=== PATIENT | female | born 1955 | race Hispanic/Latino ===

== ENCOUNTER → 2019-07-10 | Outpatient (CLI) | payer OTHER ==
[~2019-07-10] MED LIST: ACET-2743 PO; Aspirin PO; CASCARA SAGRADA PO; DULO60CA44 PO; FISH1CAP49 PO; GABA-529 PO; LEFL20TA18 PO; LISI2.5T2 PO; OMEP40CA13 PO; OXYC5 PO; PRAV10TA39 PO; SULF500T8 PO; TRAM50TA4 PO
== END | disposition home or self-care (01) ==
LOC: RAH 14:09
PROVIDERS: ATTEND Family Medicine
DX: Z12.31 Encounter for screening mammogram for malignant neoplasm of breast (principal)
CPT/HCPCS: 77067

== ENCOUNTER → 2023-10-25 | Outpatient (CLI) | payer OTHER ==
[~2023-10-25] MED LIST changes: -DULO60CA44 PO; +DULO60CA45 PO; -LEFL20TA18 PO; +LEFL20TA22 PO; +LISI2.5T13 PO; -LISI2.5T2 PO; -OMEP40CA13 PO; +OMEP40CA21 PO
== END | disposition home or self-care (01) ==
LOC: RAH 14:28
PROVIDERS: ATTEND Family Medicine
DX: Z12.31 Encounter for screening mammogram for malignant neoplasm of breast (principal)
CPT/HCPCS: 77067

== ENCOUNTER 2024-01-15 12:36 | Emergency (ER) | payer OTHER ==
[~2024-01-15] VITALS: Ht 157.5 cm; Wt 82.1 kg
[2024-01-15] MEDS: IBUPROFEN 600 MG TABLET PO ONE (13:23)
[2024-01-15] MEDS ORDERED: ACET-2079 PO (15:04)
[2024-01-15 15:33] VITALS: BP 155/77; PULSE 65; RESP 18; O2SAT 100
== END 2024-01-15 15:34 | disposition home or self-care (01) ==
LOC: EDH 12:36
DX: S52.502A Unspecified fracture of the lower end of left radius, initial encounter for closed fracture (principal); E78.00 Pure hypercholesterolemia, unspecified; I10 Essential (primary) hypertension; Z79.899 Other long term (current) drug therapy; Z90.49 Acquired absence of other specified parts of digestive tract; Z90.710 Acquired absence of both cervix and uterus; W01.0XXA Fall on same level from slipping, tripping and stumbling without subsequent striking against object, initial encounter; Y93.89 Activity, other specified; Y92.89 Other specified places as the place of occurrence of the external cause; Y99.8 Other external cause status
CPT/HCPCS: 29125; 73090; 73100

== ENCOUNTER 2024-12-28 23:43 | Emergency (ER) | payer OTHER, MEDICARE ==
[~2024-12-28] VITALS: Ht 152.4 cm; Wt 83.0 kg
[~2024-12-28 23:43] MED LIST changes: +ACET-2079 PO
--- NOTE | 2024-12-29 00:11 | ERN ---
ED Note History of Present Illness Stated Complaint: RT SHOULDER PAIN Chief Complaint: Shoulder Injury/Pain Time Seen by MD: 23:50 Dictation: PATIENT IS A 69-YEAR-OLD FEMALE HERE WITH COMPLAINTS OF CHRONIC RIGHT SHOULDER PAIN THAT RADIATES UP TO HER NECK ONSET ONE YEAR PRIOR TO ARRIVAL. SHE STATES SHE HAS A HISTORY OF RHEUMATOID ARTHRITIS AND HAS BEEN WORKED UP BY HER CRITICAL CARE EDUCATOR HOWEVER STATES IT NOTHING HAS GIVEN HERSELF. CURRENTLY SHE IS ONLY TAKING TYLENOL [id number] FOR PAIN. Allergies: Coded Allergies: No Known Allergies (Verified Allergy, 04/12/12) Home Meds Active Scripts Acetaminophen with Codeine (Acetaminophen-Cod #3 Tablet) 300 Mg-30 Mg Tablet, 1 TAB PO Q4H PRN for PAIN LEVEL 6 TO 10 for 3 Days, #18 TAB Prov:GEORGE TINOCO V CHIEF CUSTOMER OFFICER 01/15/24 Acetaminophen (Tylenol Extra Strength) 500 Mg Tablet, 1000 MG PO Q8H, #30 TAB Prov:JEFF OLIVER MD 01/23/16 Oxycodone HCl (Roxicodone) 5 Mg Tab, 5 MG PO Q4H PRN for PAIN, #40 TAB Prov:JEFF OLIVER MD 01/23/16 [Aspirin] 325 MG TABLET No Conflict Check, 325 MG PO DAILY, #20 0 Refills Prov:JEFF OLIVER MD 01/23/16 Reported Medications Leflunomide (Leflunomide) 20 Mg Tablet, 20 MG PO AM, TAB 01/20/16 Duloxetine HCl (Cymbalta) 60 Mg Capsule.dr, 60 MG PO AM, CAP 01/20/16 Lisinopril (Lisinopril) 2.5 Mg Tablet, 2.5 MG PO AM, TAB 01/20/16 Tramadol Hcl (Tramadol HCl) 50 Mg Tablet, 50 MG PO Q6 HOURS PRN for PAIN, TAB 01/20/16 Sulfasalazine (Sulfasalazine) 500 Mg Tablet, 500 MG PO TID, TAB 01/19/16 Pravastatin Sodium (Pravastatin Sodium) 10 Mg Tablet, 10 MG PO HS, TAB 01/19/16 Omeprazole (Omeprazole) 40 Mg Capsule.dr, 40 MG PO DAILY, CAP 01/19/16 Gabapentin (Gabapentin) 100 Mg Capsule, 100 MG PO TID, CAP 01/19/16 [place]-3 Fatty Acids/Fish Oil (Fish Oil 1,000 mg Capsule) 1 Each Capsule, 1 EACH PO BID, CAP 01/19/16 [Cascara [place]] No Conflict Check, 1 CAP PO HS 01/19/16 Past Medical History Past Medical History: Arthritis, Diabetes-Type II, High Cholesterol, Hypertension, Other (RHEUMATOID ARTHRITIS) Surgical History: Hysterectomy, Cholecystectomy Surgical History Other: HIP SURGERY-RIGHT History: Not Applicable RN Note Reviewed/Agreed w/PFSH: Yes Review of System Dictation CONSTITUTIONAL: NEGATIVE EXCEPT FOR HPI HEAD/FACE: NEGATIVE EXCEPT FOR HPI EENT: NEGATIVE EXCEPT FOR HPI RESPIRATORY: NEGATIVE EXCEPT FOR HPI GASTROINTESTINAL/ABDOMINAL: NEGATIVE EXCEPT FOR HPI GENITOURINARY: NEGATIVE EXCEPT FOR HPI MUSCULOSKELETAL: NEGATIVE EXCEPT FOR HPI RIGHT SHOULDER PAIN INTEGUMENTARY: NEGATIVE EXCEPT FOR HPI NEUROLOGICAL/PSYCH: NEGATIVE EXCEPT FOR HPI HEMATOLOGIC/LYMPHATIC: NEGATIVE EXCEPT FOR HPI ALL SYSTEMS NEGATIVE, EXCEPT NOTED ABOVE. 13 POINT REVIEW OF SYSTEMS ASSESSED AND ALL NEGATIVE EXCEPT FOR ABOVE. Initial Vital Sign VS Vital Signs Date Time Temp Pulse Resp B/P (MAP) Pulse Ox O2 Delivery O2 Flow Rate FiO2 12/28/24 23:45 98.2 89 16 140/88 97 Room Air 12/28/24 23:47 0 21 Physical Exam Dictation VITAL SIGNS REVIEWED GENERAL APPEARANCE: ALERT, ORIENTED X 3, SEVERE ACUTE DISTRESS, WELL DEVELOPED, NOURISHED. HEAD AND FACE: NON-TRAUMATIC. EYES: PERRL, PINK CONJUNCTIVAS, EYELID NO TRAUMA, ANTERIOR CHAMBER WITH ARCUS SENILIS. EARS: PINNAS INTACT AND NO SIGNS OF TRAUMA OR ERYTHEMA EAR CANALS CLEAR AND NO DISCHARGE TM NO ERYTHEMA NOSE: NO DISCHARGE, NO BLEEDING. OROPHARYNX: MOUTH NORMAL, TONGUE PINK, PHARYNX CLEAR,NO ERYTHEMA, TONSILS NO EXUDATES, NO ABSCESSES NOTED, MUCOUS ME MBRANE MOIST NECK: SUPPLE, NON-TENDER, NO THYROMEGALY, NO MASSES, NO JVD, NO BRUITS BREAST:DEFERRED CHEST:NO TENDERNESS, NO CREPITUS, NO PARADOXICAL MOVEMENT, NO RETRACTIONS LUNGS:CLEAR, WELL-VENTILATED, SYMMETRIC, NO RALES, NO WHEEZING, NO RHONCHI, NO STRIDOR, GOOD BREATH SOUNDS BILATERALLY HEART: REGULAR RATE, REGULAR RHYTHM, NO MURMUR, NO GALLOPS VASCULAR: NO PERIPHERAL EDEMA, ABDOMEN: SOFT, POSITIVE BOWEL SOUNDS, NONDISTENDED, NO GUARDING, NONTENDER, NO REBOUND, NO MASSES NO HEPATOMEGALY, NO SPLENOMEGALY, NO GUTIERREZ'S SIGN, NO HERNIAS. RECTAL: DEFERRED GENITAL: DEFERRED NEUROLOGICAL: NORMAL SPEECH, MOTOR FUNCTION INTACT, SENSORY FUNCTION INTACT MUSCULOSKELETAL: NECK NONTENDER, FULL RANGE OF MOTION, BACK NONTENDER, FULL RANGE OF MOTION, EXTREMITIES: RIGHT DIFFUSE SHOULDER TENDER TO PALPATION WITH DECREASED RANGE OF MOTION SECONDARY TO PAIN. DISTAL NEUROVASCULAR CMS INTACT. SKIN: COLOR PINK, DRY, NO TURGOR, NO RASH, NO LACERATIONS, NO ABRASIONS, NO CONTUSIONS. LYMPHATIC: DEFERRED Results (Laboratory/Radiology) Laboratory/Radiology 0040/SHOULDER X-RAY DEMONSTRATES DEGENERATIVE CHANGES ONLY NO FRACTURES OR DISLOCATED Labs Reviewed?: Yes ED Course ED Course Orders Procedure Category Date Status Time Shoulder Comp 2+Vws Rt RAD 12/29/24 Taken 00:08 Dexamethasone 4mg/Ml PHA 12/29/24 Complete 1ml Vial (Dexametha 00:30 Ketorolac 60mg/2ml PHA 12/29/24 Complete (Toradol 60mg/2ml) 00:30 Acetaminophen With PHA 12/29/24 Complete Codeine (Tylenol-Code 00:30 Current Medications Medications (Trade) Dose Ordered Sig/Kavya Route PRN Reason Start Time Stop Time Status Last Admin Dose Admin Acetaminophen/ Codeine Phosphate (TYLenol-coDEINE TAB) 2 tab ONCE ONCE PO 12/29/24 00:30 12/29/24 00:31 DC 12/29/24 00:16 Dexamethasone Sodium Phosphate (dexaMETHasone 4MG/ML 1ML VIAL) 8 mg ONCE ONCE IM 12/29/24 00:30 12/29/24 00:31 DC 12/29/24 00:16 Ketorolac Tromethamine (toRADol 60MG/ 2ML) 60 mg ONCE ONCE IM 12/29/24 00:30 12/29/24 00:31 DC 12/29/24 00:16 Vital Signs Date Time Temp Pulse Resp B/P (MAP) Pulse Ox O2 Delivery O2 Flow Rate FiO2 12/28/24 23:47 98.4 74 20 141/68 98 Room Air* 0 21 12/28/24 23:45 98.2 89 16 140/88 97 Room Air 0040/PATIENT DISCHARGED HOME WITH ACUTE EXACERBATION OF RHEUMATOID ARTHRITIS GIVEN PREDNISONE/IBUPROFEN TOLD TO SEE HER DOCTOR MONDAY WITHOUT FAIL FOR FOLLOW UP AND MANAGEMENT OF HER ARTHRITIS Medical Decision Making MDM MEDICAL DISCHARGE MAKING BASED ON X-RAY OF RIGHT SHOULDER AND PAIN MANAGEMENT X-RAY DEMONSTRATES DEGENERATIVE CHANGES ONLY DISCHARGED HOME ON TITRATING DOSE OF PREDNISONE AND IBUPROFEN TOLD SEE HER PRIMARY CARE DOCTOR MONDAY WITHOUT FAIL FOR FOLLOW UP AND MANAGEMENT DX & DISP Disposition: Discharge Departure Impression: Primary Impression: Acute rheumatoid arthritis Additional Impression: Right shoulder pain Condition: Stable Scripts Omeprazole (Omeprazole) 40 Mg Capsule.dr 1 CAP PO DAILY for 30 Days, #30 CAP 0 Refills Prov: NADIR JOE NP 12/29/24 Ibuprofen (Ibuprofen 800 mg Tab) 800 Mg Tab 800 MG PO Q8H PRN for fever or pain, #30 TAB 0 Refills Prov: NADIR JOE NP 12/29/24 Prednisone (Prednisone) 20 Mg Tablet 1 TAB PO AD for 6 Days, #14 TAB 0 Refills TAKE 1 TAB BY MOUTH THREE TIMES PER DAY X3 DAYS, THEN TAKE 1 TAB BY MOUTH TWICE A DAY X2 DAYS, THEN TAKE 1 TAB BY MOUTH ONCE A DAY X1 DAY. TAKE WITH FOOD Prov: NADIR JOE NP 12/29/24 Additional Instructions: FOLLOW-UP WITH PRIMARY CARE PROVIDER IN 1 TO 2 DAYS. TAKE MEDICATIONS DIRECTED HERE IN THE EMERGENCY ROOM. OKAY TO CONTINUE HOME MEDICATIONS UNLESS OTHERWISE DISCUSSED DURING YOUR VISIT IN THE EMERGENCY ROOM TODAY. RETURN TO YOUR NEAREST EMERGENCY ROOM IF SYMPTOMS WORSEN OR IF THERE IS NO IMPROVEMENT. CALL 911 IF YOU NEED IMMEDIATE ASSISTANCE. TAKE TYLENOL OR MOTRIN OVER-THE- COUNTER NEEDED AND IF NO CONTRAINDICATIONS ARE PRESENT. INCREASE ORAL HYDRATION. A WOUND CULTURE OR URINE CULTURE WAS ORDERED HERE IN THE EMERGENCY ROOM DEPARTMENT PLEASE FOLLOW-UP WITH PRIMARY CARE PROVIDER AND ADVISE THEM TO GET REPEAT PORTS FROM OUR FACILITY. IF YOU HAD ANY MICHELL WRAP/SPLINTS THAT WERE APPLIED HERE, PLEASE DO NOT REMOVE THEM UNTIL YOU SEE YOUR PRIMARY CARE OR SPECIALTY. TAKE PREDNISONE DIRECTED WITH FOOD UNTIL GONE. TAKE IBUPROFEN EVERY 8 HOURS WITH FOOD FOR THE NEXT TWO DAYS. TAKE OMEPRAZOLE DAILY FOR THE NEXT MONTH. WARM COMPRESSES TO RIGHT SHOULDER THREE TO 4 TIMES A DAY AND SEE YOUR PRIMARY CARE DOCTOR ON MONDAY WITHOUT FAIL FOR FOLLOW UP AND MANAGEMENT OF YOUR CHRONIC PAIN Referrals: HAFSA JEFF MD (PCP) Time of Disposition: 00:41 I have reviewed the case, and I agree with, Diagnosis and Plan NADIR JOE NP Dec 29, 2024 00:11
[2024-12-29] MEDS: dexaMETHasone SOD PHOSPHATE 4 MG/ML 1ML VIAL IM ONE (00:16)
[2024-12-29] MEDS: acetaMINOPHEN WITH coDEINE 1 TAB TAB PO ONE (00:16)
[2024-12-29] MEDS: ketOROlac 60 MG VIAL (30MG/ML) IM ONE (00:16)
[2024-12-29 00:41] VITALS: BP 137/63; PULSE 71; RESP 18; TEMP 98.1; O2SAT 98
[2024-12-29] MEDS ORDERED: PRED20TA3 PO (00:43)
[2024-12-29] MEDS ORDERED: IBUP-2077 PO (00:43)
[2024-12-29] MEDS ORDERED: OMEP40CA21 PO (00:43)
--- NOTE | 2024-12-29 08:26 | HMCIMG ---
RIGHT SHOULDER RADIOGRAPHS - 2-3 VIEWS INDICATION: Pain COMPARISON: None FINDINGS: No fracture or dislocation identified. Acromioclavicular and glenohumeral alignments are well maintained. Visible portions of the right clavicle are intact. Mild acromioclavicular joint osteoarthropathy. IMPRESSION: No evidence for fracture or dislocation.
== END 2024-12-29 00:47 | disposition home or self-care (01) ==
LOC: EDH 23:43
DX: M06.9 Rheumatoid arthritis, unspecified (principal); M25.511 Pain in right shoulder; E11.9 Type 2 diabetes mellitus without complications; E78.00 Pure hypercholesterolemia, unspecified; I10 Essential (primary) hypertension; Z79.899 Other long term (current) drug therapy; Z90.49 Acquired absence of other specified parts of digestive tract; Z90.710 Acquired absence of both cervix and uterus
CPT/HCPCS: 99284; 73030; 96372 ×2; J1100; J1885

== ENCOUNTER 2025-03-22 15:02 | Emergency (ER) | payer OTHER, MEDICARE ==
[~2025-03-22] VITALS: Ht 157.5 cm; Wt 80.9 kg
[~2025-03-22 15:02] MED LIST changes: +IBUP-2077 PO; +PRAV10TA37 PO; -PRAV10TA39 PO; +PRED20TA3 PO
[2025-03-22] MEDS: ORPHENADRINE 60MG/2ML IM ONE (15:34)
[2025-03-22] MEDS ORDERED: DICL20GE TP (16:08)
--- NOTE | 2025-03-22 16:09 | ERN ---
General Chief Complaint: Knee Injury/Swelling Stated Complaint: KNEE PAIN Time Seen by MD: 15:10 Source: patient History of Present Illness Initial Comments Patient is a 69-year-old female coming in complaining of left knee pain. Per patient she has had this pain for three weeks. She is followed up with the PCP in was diagnosed with osteoarthritis of the left knee. Patient does use a walker to ambulate. Allergies: Coded Allergies: No Known Allergies (Verified Allergy, 04/12/12) Home Meds Active Scripts Omeprazole (Omeprazole) 40 Mg Capsule.dr, 1 CAP PO DAILY for 30 Days, #30 CAP 0 Refills Prov:NADIR JOE NP 12/29/24 Ibuprofen (Ibuprofen 800 mg Tab) 800 Mg Tab, 800 MG PO Q8H PRN for fever or pain, #30 TAB 0 Refills Prov:NADIR JOE NP 12/29/24 Prednisone (Prednisone) 20 Mg Tablet, 1 TAB PO AD for 6 Days, #14 TAB 0 Refills TAKE 1 TAB BY MOUTH THREE TIMES PER DAY X3 DAYS, THEN TAKE 1 TAB BY MOUTH TWICE A DAY X2 DAYS, THEN TAKE 1 TAB BY MOUTH ONCE A DAY X1 DAY. TAKE WITH FOOD Prov:NADIR JOE NP 12/29/24 Acetaminophen with Codeine (Acetaminophen-Cod #3 Tablet) 300 Mg-30 Mg Tablet, 1 TAB PO Q4H PRN for PAIN LEVEL 6 TO 10 for 3 Days, #18 TAB Prov:GEORGE TINOCOP 01/15/24 Acetaminophen (Tylenol Extra Strength) 500 Mg Tablet, 1000 MG PO Q8H, #30 TAB Prov:JEFF OLIVER MD 01/23/16 Oxycodone HCl (Roxicodone) 5 Mg Tab, 5 MG PO Q4H PRN for PAIN, #40 TAB Prov:JEFF OLIVER MD 01/23/16 [Aspirin] 325 MG TABLET No Conflict Check, 325 MG PO DAILY, #20 0 Refills Prov:JEFF OLIVER MD 01/23/16 Reported Medications Leflunomide (Leflunomide) 20 Mg Tablet, 20 MG PO AM, TAB 01/20/16 Duloxetine HCl (Cymbalta) 60 Mg Capsule.dr, 60 MG PO AM, CAP 01/20/16 Lisinopril (Lisinopril) 2.5 Mg Tablet, 2.5 MG PO AM, TAB 01/20/16 Tramadol Hcl (Tramadol HCl) 50 Mg Tablet, 50 MG PO Q6 HOURS PRN for PAIN, TAB 01/20/16 Sulfasalazine (Sulfasalazine) 500 Mg Tablet, 500 MG PO TID, TAB 01/19/16 Pravastatin Sodium (Pravastatin Sodium) 10 Mg Tablet, 10 MG PO HS, TAB 01/19/16 Omeprazole (Omeprazole) 40 Mg Capsule.dr, 40 MG PO DAILY, CAP 01/19/16 Gabapentin (Gabapentin) 100 Mg Capsule, 100 MG PO TID, CAP 01/19/16 [place]-3 Fatty Acids/Fish Oil (Fish Oil 1,000 mg Capsule) 1 Each Capsule, 1 EACH PO BID, CAP 01/19/16 [Cascara [place]] No Conflict Check, 1 CAP PO HS 01/19/16 Past Medical History Past Medical History: Anxiety, Arthritis, Depression, Diabetes-Type II, High Cholesterol, Hypertension Past Surgical History: Hysterectomy, Cholecystectomy, Other Surgical History Other: right hip replacement Female( History) History: Not Applicable ROS Dictation CONSTITUTIONAL: No chills, no fever, no weakness, no diaphoresis, no malaise. HEAD/FACE: No signs of trauma. EENT: No eye pain, no blurred vision, no tearing, no double vision, no ear pain, no ear discharge, no nose pain, no nasal congestion, no throat pain, no throat swelling, no mouth pain. RESPIRATORY: No cough, no orthopnea, no SOB, no stridor, no wheezing. CARDIOVASCULAR: No chest pain, no edema, no palpitations, no syncope. GASTROINTESTINAL/ABDOMINAL: No abdominal pain, no constipation, no diarrhea, no nausea, no vomiting. GENITOURINARY: No abnormal discharge, no dysuria, no frequent urination, no hematuria. No complaints of pain in the genitals. MUSCULOSKELETAL: No back pain, no gout,joint pain, no joint swelling,muscle pain, no muscle stiffness, no neck pain. INTEGUMENTARY: No change in color, no change in hair/nails, no dryness, no lesion, no lumps, no rash. NEUROLOGICAL/PSYCH: No anxiety, not depressed, no emotional problem, no headache, no numbness, no pre-existing deficit, no history of seizures, no tremors, no weakness. HEMATOLOGIC/LYMPHATIC: Not anemic, no history of blood clots, no apparent bleeding, no bruising, glands not swollen. All Systems Negative, Except as Noted. Physical Exam Physical Exam Dictation VITAL SIGNS: Reviewed. GENERAL APPEARANCE: Alert, oriented x3, no acute distress, obese. HEAD AND FACE: Non-traumatic. EYES: PERRL, pink conjunctivas, eyelid no trauma, anterior chamber clear. EARS: Pinnas intact and no signs of trauma or erythema. Ear canals clear and no discharge. TMs no erythema. NOSE: No discharge, no bleeding. OROPHARYNX: Mouth normal, teeth no caries, tongue pink. Pharynx clear, no erythema. Tonsils no exudates, no abscesses noted. Mucous membrane moist. NECK: Supple, non-tender, no thyromegaly, no masses, no JVD, no bruits. BREAST: Deferred. CHEST: No tenderness, no crepitus, no paradoxical movement, no retractions. LUNGS: Clear, well-ventilated, symmetric, no rales, no wheezing, no rhonchi, no stridor, good breath sounds bilaterally. HEART: Regular rate, regular rhythm, no murmur, no gallops. VASCULAR: No peripheral edema. ABDOMEN: Soft, positive bowel sounds, nondistended, no guarding, nontender, no rebound, no masses no hepatomegaly, no splenomegaly, no Hernandez's sign, no hernias. RECTAL: Deferred. GENITAL: Deferred. NEUROLOGICAL: Normal speech, gross motor function intact, gross sensory function intact. MUSCULOSKELETAL: Neck nontender, full range of motion, back nontender, full range of motion. EXTREMITIES: Nontender, full range of motion. Left knee pain on palpation SKIN: Color pink, dry, no turgor, no rash, no lacerations, no abrasions, no contusions. LYMPHATICS: Deferred. Results Laboratory and Microbiology Labs Reviewed?: Yes EKG/XRAY/US/CT/MRI EKG Comment Knee x-ray- NAD MDM MDM: Differential diagnosis: Knee strain, osteoarthritis of the knee, Rationale: Tests considered and ordered secondary to shared decision making include: Previous outside records reviewed: Old ER visits. Risk of complication and/or morbidity or mortality of patient management: None Medications-Per medication reconciliation Need for hospitalization: Patient does not meet criteria for hospitalization. Need for emergency major/minor surgery: No [facility] a 69[facility] X-rays did not disclose acute findings. Knee immobilizer will be applied. It is advised him appropriate follow up with PCP in 1-2 days for long- term management. ED Course Orders Procedure Category Date Status Time Knee 3vws Lt RAD 03/22/25 Taken 15:22 Orphenadrine Citrate PHA 03/22/25 Complete (Norflex) 15:30 Ketorolac PHA 03/22/25 Complete Tromethamine 15mg/Ml 15:30 Current Medications Medications (Trade) Dose Ordered Sig/Kavya Route PRN Reason Start Time Stop Time Status Last Admin Dose Admin Ketorolac Tromethamine (toRADol) 15 mg ONCE ONCE IM 03/22/25 15:30 03/22/25 15:31 DC 03/22/25 15:34 Orphenadrine Citrate (Norflex) 60 mg ONCE ONCE IM 03/22/25 15:30 03/22/25 15:31 DC 03/22/25 15:34 Vital Signs Date Time Temp Pulse Resp B/P (MAP) Pulse Ox O2 Delivery O2 Flow Rate FiO2 03/22/25 15:10 97.5 102 18 168/82 99 Room Air* 0 21 03/22/25 15:04 97.5 102 18 168/82 99 Nasal Cannula 0 DX & DISP Disposition: Discharge Departure Impression: Primary Impression: Osteoarthritis of left knee Condition: Stable Scripts Diclofenac Sodium (Voltaren Arthritis Pain) 1 % Gel..gram. 5 GM TP BID for 7 Days, #1 TUBE Prov: ELIANE PEÑA MD 03/22/25 Additional Instructions: FOLLOW-UP WITH PRIMARY CARE PROVIDER IN 1 TO 2 DAYS. TAKE MEDICATIONS DIRECTED HERE IN THE EMERGENCY ROOM. OKAY TO CONTINUE HOME MEDICATIONS UNLESS OTHERWISE DISCUSSED DURING YOUR VISIT IN THE EMERGENCY ROOM TODAY. RETURN TO YOUR NEAREST EMERGENCY ROOM IF SYMPTOMS WORSEN OR IF THERE IS NO IMPROVEMENT. CALL 911 IF YOU NEED IMMEDIATE ASSISTANCE. TAKE TYLENOL [id number] NEEDED AND IF NO CONTRAINDICATIONS ARE PRESENT. INCREASE ORAL HYDRATION. A WOUND CULTURE OR URINE CULTURE WAS ORDERED HERE IN THE EMERGENCY ROOM DEPARTMENT PLEASE FOLLOW-UP WITH PRIMARY CARE PROVIDER AND ADVISE THEM TO GET REPORTS FROM OUR FACILITY. IF YOU HAD ANY MICHELL WRAP/SPLINTS THAT WERE APPLIED HERE, PLEASE DO NOT REMOVE THEM UNTIL YOU SEE YOUR PRIMARY CARE OR SPECIALTY. Referrals: Referrals: HAFSA JEFF MD (PCP) Time of Disposition: 16:07 ELIANE PEÑA MD Mar 22, 2025 16:09
--- NOTE | 2025-03-22 16:10 | NUR ---
KNEE IMMOBILIZER APPLIED TO LEFT LOWER EXTREMITY, ALL INSTRUCTIONS REGARDING KNEE IMMOBILIZER AND AFTER CARE EXPLAINED TO PT AND FAMILY. VERBALIZED UNDERSTANDING OF ALL EDUCATION PROVIDED. CAP REFILL LESS THAN 3 SECONDS AND SENSATION INTACT DISTAL TO IMMOBILIZER.
[2025-03-22 16:11] VITALS: BP 159/81; PULSE 89; RESP 18; TEMP 97.4; O2SAT 97
--- NOTE | 2025-03-22 16:25 | HMCIMG ---
EXAM: CR left Knee, 3 View. CLINICAL HISTORY: pain COMPARISON: None provided. FINDINGS: BONES: No acute fracture or aggressive appearing osseous lesion. JOINTS: There is medial compartment predominant severe tricompartmental left knee joint osteoarthritis. There is a large knee joint effusion that may reflect internal derangement. SOFT TISSUES: The soft tissues are unremarkable. IMPRESSION: 1. Severe tricompartmental knee osteoarthritis with large joint effusion, may reflect internal derangement /[place]
== END 2025-03-22 16:32 | disposition home or self-care (01) ==
LOC: EDH 15:02
DX: M17.12 Unilateral primary osteoarthritis, left knee (principal); E11.9 Type 2 diabetes mellitus without complications; E78.00 Pure hypercholesterolemia, unspecified; F32.A Depression, unspecified; F41.9 Anxiety disorder, unspecified; I10 Essential (primary) hypertension; Z79.899 Other long term (current) drug therapy; Z90.49 Acquired absence of other specified parts of digestive tract; Z90.710 Acquired absence of both cervix and uterus; Z96.641 Presence of right artificial hip joint
CPT/HCPCS: 99284; 73562; 96372 ×2; J1885; J2360

== ENCOUNTER → 2025-06-18 | Outpatient (CLI) | payer OTHER, MEDICAID ==
[~2025-06-18] MED LIST changes: +DICL20GE TP
[2025-06-18 21:41] VITALS: PULSE 62; RESP 14
[2025-06-18 22:00] VITALS: PULSE 61; RESP 18
[2025-06-18 22:33] VITALS: PULSE 71; RESP 12
[2025-06-18 23:10] VITALS: PULSE 57; RESP 18
[2025-06-18 23:41] VITALS: PULSE 55; RESP 12
[2025-06-18 23:59] VITALS: PULSE 65; RESP 14
[2025-06-19] VITALS (10 sets, daily range): PULSE 46–69; RESP 12–14
== END | disposition home or self-care (01) ==
LOC: SLP 20:32
PROVIDERS: ATTEND Family Medicine
DX: G47.33 Obstructive sleep apnea (adult) (pediatric) (principal)
CPT/HCPCS: 95810

== ENCOUNTER → 2025-06-27 | Outpatient (CLI) | payer OTHER, MEDICAID ==
[2025-06-27 22:09] VITALS: PULSE 74; RESP 18
[2025-06-27 23:00] VITALS: PULSE 68; RESP 14
[2025-06-27 23:30] VITALS: PULSE 72; RESP 16
[2025-06-28] VITALS (9 sets, daily range): PULSE 68–72; RESP 14–18
== END | disposition home or self-care (01) ==
LOC: SLP 20:38
PROVIDERS: ATTEND Family Medicine
DX: G47.33 Obstructive sleep apnea (adult) (pediatric) (principal)
CPT/HCPCS: 95811